=== PATIENT | female | born 1990 | race Hispanic/Latino ===

== ENCOUNTER 2020-05-15 09:07 | Day surgery (SDC) | payer OTHER ==
[~2020-05-15] VITALS: Ht 157.5 cm; Wt 52.6 kg
[~2020-05-15 09:07] MED LIST: MONI4CRE3 PV
[2020-05-15] MEDS ORDERED: LR 500 ML IV ONE (09:15)
[2020-05-15] MEDS ORDERED: ceFAZolin SOD 1 GM in D5W MINI-BAG PLUS 50 ML IV ONE (09:15)
[2020-05-15] MEDS ORDERED: LR 1,000 ML IV SCH ×3 (09:15→12:15)
[2020-05-15] MEDS ORDERED: BICITRA 30ML SOLN UDC PO ONE (09:15)
[2020-05-15] MEDS ORDERED: LR 1,000 ML IV ONE (09:15)
[2020-05-15] MEDS ORDERED: ONDANSETRON 4MG/2ML VIAL As Ordered ONE (09:37)
[2020-05-15] MEDS ORDERED: fentaNYL 100 MCG/2 ML INJECTION (J3010) As Ordered ONE (09:37)
[2020-05-15] MEDS ORDERED: propofoL 200 MG/20 ML VIAL As Ordered ONE (09:37)
[2020-05-15] MEDS ORDERED: LIDOCAINE 2% 100MG/5ML SDV (FOR ANES.) As Ordered ONE (09:37)
[2020-05-15] MEDS ORDERED: MIDAZOLAM INJ 2MG/2ML VIAL (J2250 PER 1MG) As Ordered ONE (09:37)
[2020-05-15] MEDS ORDERED: dexameTHASONE 4 MG/ML 1ML VIAL (J1100 PER 1MG) As Ordered ONE (09:41)
[2020-05-15] MEDS ORDERED: SILVER NITRATE APPLICATOR As Ordered ONE (10:57)
--- NOTE | 2020-05-15 11:42 | ROOPDOC ---
[facility] Report Of Operation Report of Operation DATE OF PROCEDURE: 05/15/20 PREPROCEDURE DIAGNOSES: Missed . POSTPROCEDURE DIAGNOSES: Missed . PROCEDURE: Suction D&C. SURGEON: Zoe Mchugh MD [place] ATTENDANT: None ANESTHESIA: WERO Spence. ESTIMATED BLOOD LOSS: Approximately 100 mL. COMPLICATIONS: None. REMARKS: Exam under anesthesia revealed an anteverted normal size uterus with no adnexal masses. Cervix was closed. DESCRIPTION OF PROCEDURE: Patient was brought back to the operating room and anesthesia was then induced. Patient was then placed in the dorsal lithotomy position and then examined under anesthesia with the above findings. Patient was then draped and prepped in the usual sterile fashion. Weighted speculum was placed in the posterior portion of the vagina. Right angle speculum was placed. The anterior portion the vagina to give good exposure to the vagina. Cervix was identified and grasped with a single-tooth tenaculum on the anterior lip. Cervix was then dilated with the [place] dilator to 16 without difficulty. A rigid curved 7 suction curet was chosen to be used for suction curetting. The vacuum was turned on and checked and found to be in the green zone. The suction curette was then gently placed through the cervical canal and into the uterus where it was gently palpated to the fundus of the uterus. Curetting was performed under suction and products of conception were visualized to go into the suction. Under multiple passes of suction, then the suction was then removed. Polyp forceps were then used to remove larger pieces of the products of conception. Then another pass with the suction curet was performed to ensure no further products of conception were within the uterus and a gritty sensation within the uterus was felt. The suction curette was then removed and there was minimal to no bleeding. Single-tooth tenaculum was then removed and a sponge stick was placed for pressure. The site was then rechecked and found to be hemostatic. Instruments were then removed. Lap, needle, instrument count was correct 2. Patient was in stable condition to the recovery room.. Zoe Mchugh MD May 15, 2020 11:42
[2020-05-15] MEDS ORDERED: ONDANSETRON 4MG/2ML VIAL IV PRN (12:00)
[2020-05-15] MEDS ORDERED: fentaNYL 100 MCG/2 ML INJECTION (J3010) IV PRN (12:00)
[2020-05-15] MEDS ORDERED: oxyCODONE 5MG TAB PO PRN (12:00)
[2020-05-15] MEDS ORDERED: HYDROMORPHONE HCL 0.5 MG/ 0.5 ML SYRINGE (J1170 PER 1) IV PRN (12:00)
[2020-05-15 13:00] VITALS: BP 103/55
== END 2020-05-15 13:30 | disposition home or self-care (01) ==
LOC: M SDC 09:07
PROVIDERS: ATTEND Obstetrics & Gynecology
DX: O02.1 Missed abortion (principal); Z88.1 Allergy status to other antibiotic agents
CPT/HCPCS: 36415; 59820; 86850; 86900; 86901; 88305; J0690; J1100; J2250; J2405; J3010

== ENCOUNTER 2020-09-05 18:05 | Emergency (ER) | payer OTHER ==
[~2020-09-05] VITALS: Ht 157.5 cm; Wt 55.7 kg
[2020-09-05 20:39] VITALS: BP 121/74
== END 2020-09-05 20:30 | disposition home or self-care (01) ==
LOC: M ED 18:05
DX: Z20.828 Contact with and (suspected) exposure to other viral communicable diseases (principal); Z88.8 Allergy status to other drugs, medicaments and biological substances
CPT/HCPCS: 99283; U0003